=== PATIENT | male | born 1950 | race Caucasian/White ===

== ENCOUNTER 2022-03-24 15:56 | Emergency (ER) | payer MEDICARE ==
[~2022-03-24] VITALS: Ht 185.4 cm; Wt 137.0 kg
[2022-03-24] MEDS ORDERED: MIDAZOLAM HCL 50 MG in DEXTROSE 5% WATER 40 ML IV ONE (16:30)
[2022-03-24] MEDS ORDERED: MIDAZOLAM HCL 100 MG in SODIUM CHLORIDE 0.9% 100 ML IV PRN (16:45)
[2022-03-24 16:54] LABS: BG BASE EXCESS -21.2 mmol/L (-2.0-2.0); BG CARBOXYHEMOGLOBIN 0.2 % (0.5-1.5); BG DEOXYHEMOGLOBIN 3.8 % (0.0-5.0); BG FRACTION INSPIRED OXYGEN 100; BG HCO3 ACT 8.9 mmol/L (22.0-26.0); BG METHEMOGLOBIN 0.5 % (0.0-1.5); BG OXYGEN SATURATION 96.2 % (92.0-98.5); BG OXYHEMOGLOBIN 95.5 % (94.0-97.0); BG PCO2 35.9 mmHg (35.0-45.0); BG PH 7.014 (7.350-7.450); BG PO2 123.6 mmHg (75.0-100.0); BG SAMPLE SITE RIGHT RADIAL; BG TOTAL HEMOGLOBIN 11.8 g/dL (12.0-18.0); BG VENT MODE VENT - AC
[2022-03-24] MEDS ORDERED: CEFEPIME 2,000 MG in DEXT 5% WATER 100 ML IV STA (16:56)
[2022-03-24] MEDS ORDERED: INSULIN REGULAR (HUMULIN R) 300UNITS/3ML VIAL IV ONE (17:00)
[2022-03-24] MEDS ORDERED: CALCIUM CHLORIDE 1GM/10ML SYR IV ONE (17:00)
[2022-03-24] MEDS ORDERED: ALBUTEROL (0.083%) 2.5MG/3ML NEB HHN ONE (17:00)
[2022-03-24] MEDS ORDERED: VANCOMYCIN 1G PREMIX 200 ML IV SCH (17:00)
[2022-03-24] MEDS ORDERED: DEXTROSE 50% WATER 50ML SYRINGE IV ONE (17:00)
[2022-03-24] MEDS ORDERED: SODIUM BICARBONATE 8.4% 1 MEQ/ML 50ML SYR IV ONE (17:00)
[2022-03-24 17:03] LABS: HEMATOCRIT. 34.5 % (42.0-52.0); HEMOGLOBIN. 10.8 g/dL (14.0-18.0); MEAN PLATELET VOLUME 9.4 fl (7.4-10.4); PLATELET 183 x1000/uL (130-400); RED BLOOD CELL COUNT 3.38 mill/uL (4.7-6.1); RED CELL DISTRIBUTION WIDTH 15.3 % (11.6-14.6)
[2022-03-24 17:07] LABS: CLARITY URINE CLOUDY (CLEAR); COLOR URINE DARK YELLOW (YELLOW); KETONES URINE TRACE (NEGATIVE); LEUKOCYTE ESTERASE URINE 2+ (NEGATIVE); NITRITE URINE NEGATIVE (NEGATIVE); OCCULT BLOOD URINE 3+ (NEGATIVE); PROTEIN URINE 1+ (NEGATIVE); SPECIFIC GRAVITY URINE 1.017 (1.005-1.030); UROBILINOGEN URINE 0.2 E.U./dL (0.2-1.0)
[2022-03-24 17:11] LABS: CHLORIDE 92 mEq/L (98-107)
[2022-03-24 17:30] LABS: NUCLEATED RED BLOOD CELLS 1 /100 WBC; PLATELET ESTIMATE NORMAL
[2022-03-24] MEDS ORDERED: EPINEPHRINE 0.1MG/ML (1:10,000) 10ML SYR ONE (17:50)
[2022-03-24 18:08] VITALS: BP 0/0
[2022-03-24 18:39] LABS: HEPATITIS B SURFACE ANTIGEN NEGATIVE
== END 2022-03-24 18:08 ==
LOC: ER 15:56
DX: I46.9 Cardiac arrest, cause unspecified (principal); E87.5 Hyperkalemia; I12.0 Hypertensive chronic kidney disease with stage 5 chronic kidney disease or end stage renal disease; E11.22 Type 2 diabetes mellitus with diabetic chronic kidney disease; N18.6 End stage renal disease; Z20.822 Contact with and (suspected) exposure to COVID-19
CPT/HCPCS: 31500; 36415; 36600; 71045; 80053; 81003; 82375; 82805; 82962; 83605; 83880; 84484; 85025; 86705; 86709; 86803; 87040; 87340; 87426; 92950; 93005; 96374; 96375; 99291; C9803; J3490; 94002; J0692; J2250; J7060